=== PATIENT | female | born 1970 | race Two or more races ===

== ENCOUNTER 2024-10-22 16:51 | Emergency (ER) | payer BC, OTHER ==
[~2024-10-22] VITALS: Ht 152.4 cm; Wt 61.3 kg
[2024-10-22] MEDS: ONDANSETRON HCL 4 MG/2 ML VIAL IV ONE (17:30)
[2024-10-22] MEDS: MECLIZINE HCL 25 MG TAB PO ONE (18:15)
[2024-10-22] MEDS: SODIUM CHLORIDE 0.9% 1,000 ML IV ONE (18:15)
[2024-10-22 18:35] LABS: Basophils # (auto) 0 10 ^3/uL (0-0.2); Basophils % (auto) 0.5 % (0.0-2.0); Eosinophils # (auto) 0.1 10 ^3/uL (0-0.8); Eosinophils % (auto) 0.6 % (0.0-7.0); Hematocrit 40.2 % (36.0-46.0); Hemoglobin 13.7 g/dL (12.2-16.2); Lymphocytes # (auto) 1.3 10 ^3/uL (0.4-5.4); Lymphocytes % (auto) 15.7 % (10.0-50.0); Mean Corpuscular Hemoglobin 29.9 pg (28.0-32.0); Monocytes # (auto) 0.4 10 ^3/uL (0-1.3); Monocytes % (auto) 4.7 % (0.0-12.0); Neutrophils # (auto) 6.6 10 ^3/uL (1.6-8.6); Neutrophils % (auto) 78.5 % (37.0-80.0); Nucleated Red Blood Cells % 0.1 %; Platelet Count (auto) 198 10^3/uL (140-450); Red Blood Cells 4.57 10^6/uL (4.0-5.20); White Blood Cell 8.4 10^3/uL (4.4-10.8)
[2024-10-22 18:50] LABS: Alanine Aminotransferase 37 U/L (7-40); Albumin 4.6 g/dL (3.2-4.8); Alkaline Phosphatase 84 U/L (46-116); Anion Gap 13 (5-15); Aspartate Aminotransferase 26 U/L (13-40); BUN/Creatinine Ratio 31.4 (10.0-20.0); Bilirubin, Total 0.3 mg/dL (0.2-1.0); Blood Urea Nitrogen 16 mg/dL (9-23); Calcium 9.7 mg/dL (8.7-10.4); Carbon Dioxide 22 mmol/L (20-31); Chloride 106 mmol/L (98-107); Sodium 141 mmol/L (136-145); Total Protein 7.3 g/dL (5.7-8.2)
[2024-10-22 18:52] LABS: Glucose 129 mg/dL (74-106); Potassium 3.2 mmol/L (3.5-5.1)
--- NOTE | 2024-10-22 18:57 | ED.PDOC ---
History of Present Illness HPI Comments 53Y F with PMHx presents to ED for chief complaint dizziness x4hrs with chills, n/v/d, abd pain, mild dysuria, and left elbow pain/swelling. Pt states LUE pain began one week ago. Pt denies trauma. Pt denies sick contact. No other symptoms reported. Chief Complaint: Dizziness Time Seen by MD: 18:27 Reviewed Notes: Nurses Notes, Medications, Allergies Allergies: Coded Allergies: NO KNOWN ALLERGIES (Unverified , 10/22/24) Information Source: Patient Mode of Arrival: Ambulatory Severity: Mild Timing: Hours Duration: Since onset Prehospital treatment: None Past Medical History PAST MEDICAL HISTORY: Denies Surgical History: [employer] History: Denies all [employer] Hx Family History Family History: Unknown Social History Smoker: Non-Smoker Alcohol: Denies ETOH Use Drugs: Denies Drug Use Lives In: Home Constitutional: reports: chills; denies: diaphoresis, fatigue, fever, malaise, sweats, weakness, others EENTM: denies: blurred vision, double vision, ear bleeding, ear discharge, ear drainage, ear pain, ear ringing, eye pain, eye redness, hearing loss, mouth pain, mouth swelling, nasal discharge, nose bleeding, nose congestion, nose pain, photophobia, tearing, throat pain, throat swelling, voice changes, others Respiratory: denies: cough, hemoptysis, orthopnea, SOB at rest, shortness of breath, SOB with excertion, stridor, wheezing, others Cardiovascular: denies: chest pain, dizzy spells, diaphoresis, Dyspnea on exertion, edema, irregular heart beat, left arm pain, lightheadedness, palpitations, PND, syncope, others Gastrointestinal: reports: abdominal pain, diarrhea, nausea, vomiting; denies: abdomen distended, blood streaked bowels, constipated, dysphagia, difficulty swallowing, hematemesis, melena, poor appetite, poor fluid intake, rectal bleeding, rectal pain, others Genitourinary: reports: dysuria; denies: abnormal vagina bleeding, burning, dyspareunia, flank pain, frequency, hematuria, incontinence, pain, , vagina discharge, urgency, others Neurological: reports: dizziness; denies: fainting, headache, left sided numbness, left sided weakness, numbness, paresthesia, pre-existing deficit, right sided numbness, right sided weakness, seizure, speech problems, tingling, tremors, weakness, others Musculoskeletal: reports: others (LUE pain); denies: back pain, gout, joint pain, joint swelling, muscle pain, muscle stiffness, neck pain Integumetry: denies: bruises, change in color, change in hair/nails, dryness, laceration, lesions, lumps, rash, wounds, others Allergic/Immunocompromised: denies: Difficulty Healing, Frequent Infections, Hives, Itching, others Hematologic/Lymphatic: denies: anemia, blood clots, easy bleeding, easy bruising, swollen glands, others Endocrine: denies: excessive hunger, excessive sweating, excessive thirst, excessive urination, flushing, intolerance to cold, intolerance to heat, unexplained weight gain, unexplained weight loss, others Psychiatric: denies: anxiety, bipolar disorder, depression, hopeless, panic disorder, schizophrenia, sleepless, suicidal, others All Other Systems: Reviewed and Negative Physical Exam General Appearance: Mild Distress HEENT: PERRL/EOMI, Other (Mucous membranes. No facial asymmetry.) Neck: Full Range of Motion, Non-Tender, Normal Inspection, Supple Respiratory: Lungs Clear, No Accessory Muscle Use, No Respiratory Distress, Normal Breath Sounds Cardiovascular: No Edema, No JVD, Regular Rate/Rhythm Breast Exam: Deferred Gastrointestinal: Non Tender, Soft Genitalia: Deferred Pelvic: Deferred Rectal: Deferred Extremities: Normal range of motion, No pedal edema, Swelling (Left elbow soft tissue swelling/prominence medial aspect. No erythema or fluctuance. Mild soft tissue tenderness.) Neurologic: Alert (Oriented x4), Normal Affect, Normal Mood, Other (Ambulatory. No gross focal deficit. Head movement reproduces dizziness symptoms.) Cerebellar Function: NOT DONE Reflexes: NOT DONE Skin: Dry, Normal Color, Warm Lymphatic: NOT DONE Was a procedure done? Was a procedure done?: No EKG EKG : Comments Sinus rhythm, rate 66, normal intervals, left axis deviation, possible old inferior infarct, no ST/T changes. Differential Dx Considerations may include: vertigo, UTI, CVA, TIA, electrolyte imbalance, hypovolemia, left upper extremity DVT, colitis, diverticulitis, appendicitis, arrhythmia, CA, among others X-Ray, Labs, Meds, VS Vital Signs Date Time Temp Pulse Resp B/P (MAP) Pulse Ox O2 Delivery O2 Flow Rate FiO2 10/22/24 18:21 97.8 76 16 161/93 (115) 97 97.8 10/22/24 18:21 76 16 97 Room Air 10/22/24 17:15 66 10/22/24 17:05 97.8 65 20 160/87 (111) 100 Lab Test 10/22/24 19:21 10/22/24 18:20 10/22/24 18:12 10/22/24 17:09 Range/Units Troponin I High Sensitivity < 3 L < 3 L </=34 ng/L Urine Color Light-yellow Yellow Urine Clarity Clear Clear Urine pH 6.5 5.0-9.0 Urine Specific [place] 1.016 1.001-1.035 Urine Protein Negative Negative Urine Ketones Negative Negative Urine Blood Trace H Negative /uL Urine Nitrite Negative Negative Urine Bilirubin Negative Negative Urine Urobilinogen Normal Negative mg/dL Urine Leukocyte Esterase Negative Negative /uL Urine RBC 6 0 - 4 /hpf Urine Microscopic WBC 1 0-5 /HPF Urine Squamous Epithelial Cells Few <5 /hpf Urine Bacteria None seen None Seen /hpf Urine Mucus Few None Seen Urine Glucose Normal Normal mg/dL White Blood Count 8.4 4.4-10.8 10^3/uL Red Blood Count 4.57 4.0-5.20 10^6/uL Hemoglobin 13.7 12.2-16.2 g/dL Hematocrit 40.2 36.0-46.0 % Mean Corpuscular Volume 88.0 80.0-100.0 fL Mean Corpuscular Hemoglobin 29.9 28.0-32.0 pg Mean Corpuscular Hemoglobin Concent 34.0 32.0-36.0 g/dL Red Cell Distribution Width 14.0 11.8-14.3 % Platelet Count 198 140-450 10^3/uL Mean Platelet Volume 10.2 6.9-10.8 fL Neutrophils (%) (Auto) 78.5 37.0-80.0 % Lymphocytes (%) (Auto) 15.7 10.0-50.0 % Monocytes (%) (Auto) 4.7 0.0-12.0 % Eosinophils (%) (Auto) 0.6 0.0-7.0 % Basophils (%) (Auto) 0.5 0.0-2.0 % Neutrophils # (Auto) 6.6 1.6-8.6 10 ^3/uL Lymphocytes # (Auto) 1.3 0.4-5.4 10 ^3/uL Monocytes # (Auto) 0.4 0-1.3 10 ^3/uL Eosinophils # (Auto) 0.1 0-0.8 10 ^3/uL Basophils # (Auto) 0 0-0.2 10 ^3/uL Nucleated Red Blood Cells 0.1 % Sodium Level 141 136-145 mmol/L Potassium Level 3.2 L 3.5-5.1 mmol/L Chloride Level 106 98-107 mmol/L Carbon Dioxide Level 22 20-31 mmol/L Anion Gap 13 5-15 Blood Urea Nitrogen 16 9-23 mg/dL Creatinine 0.51 L 0.550-1.02 mg/dL Glomerular Filtration Rate Calc 113 >90 mL/min BUN/Creatinine Ratio 31.4 H 10.0-20.0 Serum Glucose 129 H 74-106 mg/dL Calcium Level 9.7 8.7-10.4 mg/dL Total Bilirubin 0.3 0.2-1.0 mg/dL Aspartate Amino Transferase (AST) 26 13-40 U/L Alanine Aminotransferase (ALT) 37 7-40 U/L Alkaline Phosphatase 84 46-116 U/L B-Type Natriuretic Peptide 5.77 0-100 pg/mL Total Protein 7.3 5.7-8.2 g/dL Albumin 4.6 3.2-4.8 g/dL Beta HCG, Quantitative 1.8 1.5-4.2 mIU/mL POC Glucose 120 H 70-106 mg/dl Current Medications Medications (Trade) Dose Ordered Sig/Alanis Route Start Time Stop Time Status Last Admin Sodium Chloride 1,000 ml @ 1,000 mls/hr Q1H ONCE IV 10/22/24 17:30 10/22/24 18:29 DC 10/22/24 18:15 Meclizine HCl (Antivert Tablet) 50 mg ONCE ONCE PO 10/22/24 17:30 10/22/24 17:31 DC 10/22/24 18:15 Ondansetron HCl (Zofran) 4 mg ONCE ONCE IV 10/22/24 17:30 10/22/24 17:31 DC 10/22/24 17:30 ORDERING PHYSICIAN: ALBERT GANDARA MD PROCEDURE(s): LUDVT - LT Upper DVT REASON: pain, edema ORDER NUMBER(s): [id number], ACCESSION NUMBER(s): [id number] LEFT Upper Extremity Venous Duplex Clinical History: pain, edema Comparison: None Technique: Duplex Doppler evaluation of the venous system of the LEFT lower neck and upper extremity including color Doppler and spectral/pulsed waveform analysis was performed. Findings: The internal jugular vein demonstrates appropriate compressibility and waveform variability. The subclavian vein is patent on color Doppler evaluation without intraluminal thrombus and demonstrates waveform variability. The visualized portion of the brachiocephalic vein is patent on color Doppler evaluation without intraluminal thrombus and demonstrates waveform variability. The axillary vein demonstrates appropriate compressibility and waveform lorene iability. The brachial veins demonstrate appropriate compressibility and patency on Doppler evaluation. The basilic vein demonstrates appropriate compressibility and patency on Doppler evaluation. The cephalic vein demonstrates appropriate compressibility and patency on Doppler evaluation. Impression: No venous thrombus identified in the LEFT upper extremity vessels evaluated above. RING PHYSICIAN: ALBERT GANDARA MD PROCEDURE(s): LELB3 - L ELBOW 3 VIEW XRAY REASON: pain ORDER NUMBER(s): [id number], ACCESSION NUMBER(s): [id number] CLINICAL INDICATION: Left elbow pain TECHNIQUE: XY L ELBOW 3 VIEW XRAY Comparison: None FINDINGS/IMPRESSION: : There is no evidence of acute fracture or dislocation. Soft tissues are unremarkable. RING PHYSICIAN: ALBERT GANDARA MD PROCEDURE(s): CXRP - CHEST PORTABLE REASON: dizzy ORDER NUMBER(s): [id number], ACCESSION NUMBER(s): [id number] EXAM: XY CHEST PORTABLE TECHNIQUE: Single frontal chest radiograph CLINICAL HISTORY: dizzy COMPARISON: None Findings/Impression: Frontal chest radiograph demonstrates no acute osseous or superficial soft tissue abnormalities. The trachea is midline. The cardiac silhouette and mediastinum are within normal limits. No pneumothorax, pleural effusions, or consolidations. RING PHYSICIAN: ALBERT GANDARA MD PROCEDURE(s): HWOCT - HEAD WITHOUT CONTRAST REASON: dizzy ORDER NUMBER(s): [id number], ACCESSION NUMBER(s): [id number] CLINICAL HISTORY: dizzy TECHNIQUE: Helical imaging carried out from skull base to vertex without intravenous contrast. This exam was performed according to our departmental dose optimization program. Up-to-date CT equipment and radiation dose reduction techniques are utilized as appropriate. CTDIVol: 51.16 mGy DLP: 904.8 mGy-cm WID: COMPARISON: None FINDINGS: The ventricles and subarachnoid spaces are normal in size and configuration. There is no midline shift or mass effect. The sanchez white matter interfaces are maintained. The basal cisterns are patent. There is no evidence of acute intracranial hemorrhage or extra-axial fluid collection. The mastoid air cells and visualized paranasal sinuses are well-aerated. IMPRESSION: No acute intracranial abnormality. RING PHYSICIAN: ALBERT GANDARA MD PROCEDURE(s): ABPL - CT AB PEL WO CON-NO ORAL OR IV REASON: abd pain, n/v/d ORDER NUMBER(s): [id number], ACCESSION NUMBER(s): [id number] CLINICAL HISTORY: abd pain, n/v/d TECHNIQUE: CT of the abdomen and pelvis was performed without intravenous contrast. This exam was performed according to our departmental dose optimization program. Up-to-date CT equipment and radiation dose reduction techniques are utilized as appropriate. COMPARISON: None FINDINGS: Lower Thorax: Sub 5 mm right middle lobe pulmonary nodule on series 3, image 5. The lung bases are otherwise clear. Normal-sized heart. Liver and Biliary system: Unremarkable. Spleen: Unremarkable. Adrenal Glands and Kidneys: Unremarkable. Pancreas and Retroperitoneum: Unremarkable. Aorta and Major Vessels: Unremarkable. Bowel, Mesentery and Peritoneal space: Normal caliber small and large bowel. Mild colonic Diverticulosis. Normal appendix. There is no free air or fluid collection. Pelvis: Unremarkable. Abdominal wall and Osseous Structures: Minor lower thoracic and lumbar spondylosis. No destructive osseous lesion. IMPRESSION: 1. No bowel obstruction, fluid collection, or free air. Normal appendix. 2. Mild colonic diverticulosis 3. Sub 5 mm right middle lobe pulmonary nodule, nonspecific on initial exam. X-Ray, Labs, Meds, VS Comment 53Y F with PMHx presents to ED for chief complaint dizziness x4hrs with chills, n/v/d, abd pain, mild dysuria, and left elbow pain/swelling Vitals remarkable for BP 160/87 Exam remarkable for soft tissue prominence/swelling and mild soft tissue tenderness in the medial aspect of the left elbow, reproducible dizziness with head movement Rhythm strip independently interpreted by me: Sinus rhythm, rate 66, no ectopy. CT head unremarkable Chest x-ray Findings/Impression: Frontal chest radiograph demonstrates no acute osseous or superficial soft tissue abnormalities. The trachea is midline. The cardiac silhouette and mediastinum are within normal limits. No pneumothorax, pleural effusions, or consolidations. Left elbow x-ray: FINDINGS/IMPRESSION: : There is no evidence of acute fracture or dislocation. Soft tissues are unremarkable. Left upper extremity ultrasound: No DVT CT abdomen and pelvis IMPRESSION: 1. No bowel obstruction, fluid collection, or free air. Normal appendix. 2. Mild colonic diverticulosis 3. Sub 5 mm right middle lobe pulmonary nodule, nonspecific on initial exam. CBC unremarkable, metabolic panel remarkable for potassium 3.2, 2 serial troponins negative, BNP normal, hCG negative, UA unremarkable Patient treated with the following in the ED: 1 L 0.9 normal saline IV bolus, meclizine 50 mg p.o., Zofran 4 mg IV On re-evaluation, symptoms have improved. Vitals were stable. Patient has no focal neurologic deficit on exam and is ambulatory. Hospitalization was considered, however patient had rapid improvement of symptoms with treatment in the ED, and I no longer feel hospitalization is necessary. Patient appears stable for discharge with close outpatient follow-up with her primary physician. Rx meclizine, Zofran, Imodium Time of 1ST Reevaluation: 18:57 Reevaluation 1ST: Unchanged Time of 2ND Reevaluation: 22:49 Reevaluation 2ND: Improved Patient Education/Counseling: Diagnosis, Treatment Family Education/Counseling: No Family Present Departure 1 Departure Time of Disposition: 22:49 Impression: Primary Impression: Vertigo Additional Impression: Nausea vomiting and diarrhea Disposition: 01 HOME / SELF CARE / HOMELESS Condition: Stable Additional Instructions: Your blood tests were unremarkable. Your urine test was unremarkable. Your head CT, elbow x-rays, chest x-ray and left upper extremity ultrasound were unremarkable. Your abdominal CT did not show any finding that would explain your symptoms. There was an incidental finding of a pulmonary nodule. I have enclosed the report below. This does not require any treatment at this time. Follow-up with your primary doctor in 1-2 days for re-evaluation. I have prescribed medication for nausea, dizziness and pain. [place] [id number] Ph: [phone] DIAGNOSTIC IMAGING Diagnostic Imaging Report : [id number] Signed PATIENT: STEPHANIE MACEDO ACCT: [id number] UNIT: [id number] : 1970 LOC: ER ROOM / BED: / AGE / SEX: 53 / F ADM STATUS: REG ER SERVICE 1830 ORDERING PHYSICIAN: ALBERT GANDARA MD PROCEDURE(s): ABPL - CT AB PEL WO CON-NO ORAL OR IV REASON: abd pain, n/v/d ORDER NUMBER(s): [id number], ACCESSION NUMBER(s): [id number] CLINICAL HISTORY: abd pain, n/v/d TECHNIQUE: CT of the abdomen and pelvis was performed without intravenous contrast. This exam was performed according to our departmental dose optimization program. Up-to-date CT equipment and radiation dose reduction techniques are utilized as appropriate. COMPARISON: None FINDINGS: Lower Thorax: Sub 5 mm right middle lobe pulmonary nodule on series 3, image 5. The lung bases are otherwise clear. Normal-sized heart. Liver and Biliary system: Unremarkable. Spleen: Unremarkable. Adrenal Glands and Kidneys: Unremarkable. Pancreas and Retroperitoneum: Unremarkable. Aorta and Major Vessels: Unremarkable. Bowel, Mesentery and Peritoneal space: Normal caliber small and large bowel. Mild colonic Diverticulosis. Normal appendix. There is no free air or fluid collection. Pelvis: Unremarkable. Abdominal wall and Osseous Structures: Minor lower thoracic and lumbar spondylosis. No destructive osseous lesion. IMPRESSION: 1. No bowel obstruction, fluid collection, or free air. Normal appendix. 2. Mild colonic diverticulosis 3. Sub 5 mm right middle lobe pulmonary nodule, nonspecific on initial exam. e-Prescriptions Acetaminophen (Tylenol Extra Strength) 500 Mg Tab 1000 MG PO Q6HP PRN, #30 TAB prn fever or pain Prov: ALBERT GANDARA MD 10/22/24 Loperamide HCl (Imodium A-D) 2 Mg Cap 2 MG PO Q6HP PRN, #20 CAP prn diarrhea Prov: ALBERT GANDARA MD 10/22/24 Ondansetron Odt 4MG Tab (ZOFRAN PO) 4 Mg Tb 4 MG PO TID PRN, #30 TAB prn n/v ODT TAB-DISSOLVE IN MOUTH, THEN SWALLOW Prov: ALBERT GANDARA MD 10/22/24 Meclizine HCl (Meclizine 25) 25 Mg Tab 50 MG PO TID PRN, #30 TAB prn dizziness Prov: ALBERT GANDARA MD 10/22/24 Discharged With: Relative Critical Care Note Critical Care Time?: No Stability Stability form required: No Heart Score Heart Score: Heart Score Response (Comments) Value History N/A 0 EKG N/A 0 Age N/A 0 Risk Factors N/A 0 Troponin N/A 0 Total 0 I personally scribed for ALBERT GANDARA MD) on 10/22/24 at 1 8:57. Electronically submitted by Venecia Borjas ([facility]). I personally scribed for ALBERT GANDARA MD) on 10/22/24 at 19:22. Electronically submitted by Venecia Borjas ([facility]). I personally scribed for ALBERT GANDARA MD) on 10/22/24 at 21:11. Electronically submitted by Venecia Borjas ([facility]). I personally scribed for ALBERT GANDARA MD) on 10/22/24 at 21:21. Electronically submitted by Venecia Borjas ([facility]). I personally scribed for ALBERT GANDARA MDKA) on 10/22/24 at 21:53. Electronically submitted by Venecia Borjas ([email or web address]). ALBERT GANDARA MD Oct 22, 2024 18:57
--- NOTE | 2024-10-22 19:17 | DVH ---
LEFT Upper Extremity Venous Duplex Clinical History: pain, edema Comparison: None Technique: Duplex Doppler evaluation of the venous system of the LEFT lower neck and upper extremity including color Doppler and spectral/pulsed waveform analysis was performed. Findings: The internal jugular vein demonstrates appropriate compressibility and waveform variability. The subclavian vein is patent on color Doppler evaluation without intraluminal thrombus and demonstra marilyn waveform variability. The visualized portion of the brachiocephalic vein is patent on color Doppler evaluation without intr aluminal thrombus and demonstrates waveform variability. The axillary vein demonstrates appropriate compressibility and waveform variability. The brachial veins demonstrate appropriate compressibility and patency on Doppler evaluation. The basilic vein demonstrates appropriate compressibility and patency on Doppler evaluation. The cephalic vein demonstrates appropriate compressibility and patency on Doppler evaluation. Impression: No venous thrombus identified in the LEFT upper extremity vessels evaluated above.
[2024-10-22 20:04] LABS: Urine Bacteria None Seen /hpf (None Seen)
[2024-10-22 20:17] LABS: Urine Blood TRACE /uL (Negative); Urine Clarity Clear (Clear); Urine Color Light-Yellow (Yellow); Urine Mucus FEW (None Seen); Urine Protein, UAD Negative (Negative); Urine Specific Gravity 1.016 (1.001-1.035); Urine Squamous Epithelial Cell FEW /hpf (<5); Urine Urobilinogen Normal (Negative); Urine WBC 1 /HPF (0-5); Urine pH 6.5 (5.0-9.0)
--- NOTE | 2024-10-22 20:57 | DVH ---
CLINICAL INDICATION: Left elbow pain TECHNIQUE: XY L ELBOW 3 VIEW XRAY Comparison: None FINDINGS/IMPRESSION: : There is no evidence of acute fracture or dislocation. Soft tissues are unremarkable.
--- NOTE | 2024-10-22 21:00 | DVH ---
CLINICAL HISTORY: dizzy TECHNIQUE: Helical imaging carried out from skull base to vertex without intravenous contrast. This e xam was performed according to our departmental dose optimization program. Up-to-date CT equipment an d radiation dose reduction techniques are utilized as appropriate. CTDIVol: 51.16 mGy DLP: 904.8 mGy-cm WID: COMPARISON: None FINDINGS: The ventricles and subarachnoid spaces are normal in size and configuration. There is no midline kim ft or mass effect. The sanchez white matter interfaces are maintained. The basal cisterns are patent. Th ere is no evidence of acute intracranial hemorrhage or extra-axial fluid collection. The mastoid air cells and visualized paranasal sinuses are well-aerated. IMPRESSION: No acute intracranial abnormality.
--- NOTE | 2024-10-22 21:11 | DVH ---
EXAM: XY CHEST PORTABLE TECHNIQUE: Single frontal chest radiograph CLINICAL HISTORY: dizzy COMPARISON: None Findings/Impression: Frontal chest radiograph demonstrates no acute osseous or superficial soft tissue abnormalities. The trachea is midline. The cardiac silhouette and mediastinum are within normal limits. No pneumothorax, pleural effusions, or consolidations.
--- NOTE | 2024-10-22 21:50 | DVH ---
CLINICAL HISTORY: abd pain, n/v/d TECHNIQUE: CT of the abdomen and pelvis was performed without intravenous contrast. This exam was per formed according to our departmental dose optimization program. Up-to-date CT equipment and radiation dose reduction techniques are utilized as appropriate. COMPARISON: None FINDINGS: Lower Thorax: Sub 5 mm right middle lobe pulmonary nodule on series 3, image 5. The lung bases are ot herwise clear. Normal-sized heart. Liver and Biliary system: Unremarkable. Spleen: Unremarkable. Adrenal Glands and Kidneys: Unremarkable. Pancreas and Retroperitoneum: Unremarkable. Aorta and Major Vessels: Unremarkable. Bowel, Mesentery and Peritoneal space: Normal caliber small and large bowel. Mild colonic Diverticulo sis. Normal appendix. There is no free air or fluid collection. Pelvis: Unremarkable. Abdominal wall and Osseous Structures: Minor lower thoracic and lumbar spondylosis. No destructive os seous lesion. IMPRESSION: 1. No bowel obstruction, fluid collection, or free air. Normal appendix. 2. Mild colonic diverticulosis 3. Sub 5 mm right middle lobe pulmonary nodule, nonspecific on initial exam.
[2024-10-22] MEDS ORDERED: ACET-1304 PO (22:54)
[2024-10-22] MEDS ORDERED: LOPE7.5C PO (22:54)
[2024-10-22] MEDS ORDERED: ZOFR4T PO (22:54)
[2024-10-22] MEDS ORDERED: MECL1TAB42 PO (22:54)
[2024-10-22 23:40] VITALS: BP 137/79; PULSE 68; RESP 17; TEMP 97.9; O2SAT 96
--- NOTE | 2024-10-24 10:53 | ECG ---
[facility] Test Date: 2024-10-22 Test Time: 17:15:12 Pat Name: STEPHANIE MACEDO Department: ER Room: Gender: F Business Agent: ER : 1970 Requested By: ALBERT SINGER Order Number: [id number] Reading MD: Measurements Intervals [place] Rate: 66 P: 0 MO: 186 QRS: -43 QRSD: 89 T: 53 QT: 418 QTc: 438 Interpretive Statements Sinus rhythm Inferior infarct, old Please click the below link to view image of tracing.
== END 2024-10-22 23:44 | disposition home or self-care (01) ==
LOC: ER 16:51
DX: R42 Dizziness and giddiness (principal); R11.2 Nausea with vomiting, unspecified; R07.9 Chest pain, unspecified; M25.522 Pain in left elbow; K57.30 Diverticulosis of large intestine without perforation or abscess without bleeding; R60.9 Edema, unspecified
CPT/HCPCS: 36415; 70450; 71045; 73080; 74176; 80053; 81001; 82947; 83880; 84484; 84702; 85025; 93005; 93971; 96361; 96374; 99285; J2405; J8597; 82962